=== PATIENT | male | born 1950 | race Asian ===

== ENCOUNTER 2018-10-11 07:19 | Emergency (ER) | payer OTHER ==
[~2018-10-11] VITALS: Ht 170.2 cm; Wt 72.6 kg
[2018-10-11 07:32] VITALS: Ht 170.2 cm; Wt 72.6 kg
[2018-10-11 08:08] LABS: BASOPHIL % 0.3 % (0-2); PLATELET COUNT 223 x10^3mcL (130-400); RED CELL DISTRIBUTION WIDTH 13.3 % (11.5-14.5)
[2018-10-11 08:19] LABS: CALCIUM 9.7 mg/dL (8.5-10.1); CREATININE SERUM 1.3 mg/dL (0.7-1.3)
[2018-10-11 08:23] LABS: ALBUMIN 3.7 g/dL (3.4-5.0); BILIRUBIN TOTAL 0.54 mg/dL (0.20-1.00); TOTAL PROTEIN, SERUM 8.5 g/dL (6.4-8.2)
[2018-10-11 11:27] VITALS: BP 145/78
== END 2018-10-11 11:27 | disposition home or self-care (01) ==
LOC: ED 07:19
PROVIDERS: Emergency Medicine
DX: K61.1 Rectal abscess (principal); I10 Essential (primary) hypertension
CPT/HCPCS: 36415; J2001; Q0092

== ENCOUNTER 2018-10-13 08:30 | Emergency (ER) | payer OTHER ==
[~2018-10-13] VITALS: Ht 170.2 cm; Wt 72.3 kg
[2018-10-13 08:34] VITALS: Ht 170.2 cm; Wt 72.3 kg
[2018-10-13 09:07] VITALS: BP 131/83
== END 2018-10-13 09:07 | disposition home or self-care (01) ==
LOC: ED 08:30
DX: L02.31 Cutaneous abscess of buttock (principal); I10 Essential (primary) hypertension; E78.00 Pure hypercholesterolemia, unspecified; Z48.01 Encounter for change or removal of surgical wound dressing